=== PATIENT | female | born 1950 | race Two or more races ===

== ENCOUNTER 2018-07-07 17:06 | Emergency (ER) | payer MEDICAID ==
[~2018-07-07] VITALS: Ht 157.5 cm; Wt 74.8 kg
[2018-07-07 17:06] VITALS: BP 143/89
== END 2018-07-07 18:02 | disposition home or self-care (01) ==
LOC: ER 17:08
DX: B34.9 Viral infection, unspecified (principal); F41.9 Anxiety disorder, unspecified; I10 Essential (primary) hypertension; K21.9 Gastro-esophageal reflux disease without esophagitis; E11.9 Type 2 diabetes mellitus without complications; Z60.2 Problems related to living alone
CPT/HCPCS: 99283; A4606; Z7610

== ENCOUNTER 2018-07-22 13:10 | Emergency (ER) | payer MEDICAID ==
[~2018-07-22] VITALS: Ht 157.5 cm; Wt 68.0 kg
[2018-07-22] MEDS ORDERED: DIAZEPAM 5 MG TABLET ONE (14:04)
[2018-07-22] MEDS ORDERED: MORPHINE SULFATE INJ 4 MG/ML DISP.SYRIN ONE (14:04)
[2018-07-22] MEDS ORDERED: ONDANSETRON 4 MG TAB.RAPDIS ONE (14:08)
[2018-07-22] MEDS: MORPHINE SULFATE INJ 2 MG/ML DISP.SYRIN IM ONE (14:21)
[2018-07-22] MEDS: ONDANSETRON 4 MG TAB.RAPDIS PO ONE (14:21)
[2018-07-22] MEDS: DIAZEPAM 10 MG TABLET PO ONE (14:21)
--- NOTE | 2018-07-22 14:24 | NUR ---
LEFT SHOULDER PAIN RADIATING TO NECK AND BACK X 1 WEEK, WORST TODAY. PT AAOX3, VSS. DENIES CONRAD, CP, SOB, DIZZINESS, N/V @ THIS TIME. PT SEEN & EVAL'D BY TEENA BAEZA. MEDICATED FOR PAIN & WILL CONT TO MONITOR.
[2018-07-22 14:52] VITALS: BP 142/88
== END 2018-07-22 14:54 | disposition home or self-care (01) ==
LOC: ER 13:10
DX: M62.838 Other muscle spasm (principal); I10 Essential (primary) hypertension; E78.5 Hyperlipidemia, unspecified; K21.9 Gastro-esophageal reflux disease without esophagitis; Z60.2 Problems related to living alone
CPT/HCPCS: 73030; 96372; 99284; A4606; J2270; Q0162; Z7610

== ENCOUNTER 2018-12-05 21:57 | Emergency (ER) | payer MEDICAID ==
[~2018-12-05] VITALS: Ht 154.9 cm; Wt 73.0 kg
--- NOTE | 2018-12-06 | NUR ---
PT BIBS. COMP OF HAVING " I HAD EAR PAIN THAT SPREAD TO MY NECK THEN SPREAD TO MY LUNGS" -N/V -DIZZINESS 12/26 PAIN. ITCHING NOTED. STARTED THURSDAY.
[2018-12-06 00:06] VITALS: BP 151/71
== END 2018-12-06 00:15 | disposition home or self-care (01) ==
LOC: ER 22:01
DX: J06.9 Acute upper respiratory infection, unspecified (principal); I10 Essential (primary) hypertension; E78.5 Hyperlipidemia, unspecified; K21.9 Gastro-esophageal reflux disease without esophagitis; E11.9 Type 2 diabetes mellitus without complications; Z60.2 Problems related to living alone
CPT/HCPCS: 99283; A4606

== ENCOUNTER 2019-02-01 14:07 | Emergency (ER) | payer MEDICAID ==
[~2019-02-01] VITALS: Ht 154.9 cm; Wt 74.4 kg
[2019-02-01 14:33] VITALS: BP 122/66
== END 2019-02-01 15:02 | disposition home or self-care (01) ==
LOC: ER 14:07
DX: I88.9 Nonspecific lymphadenitis, unspecified (principal); E11.9 Type 2 diabetes mellitus without complications; I10 Essential (primary) hypertension; E78.5 Hyperlipidemia, unspecified; K21.9 Gastro-esophageal reflux disease without esophagitis; Z98.890 Other specified postprocedural states; Z90.710 Acquired absence of both cervix and uterus; Z60.2 Problems related to living alone

== ENCOUNTER 2019-06-27 17:43 | Emergency (ER) | payer MEDICAID ==
[~2019-06-27] VITALS: Ht 152.4 cm; Wt 72.6 kg
[2019-06-27 17:57] VITALS: BP 157/82
[2019-06-27] MEDS ORDERED: KETOROLAC TROMETHAMINE INJ 30 MG/ML VIAL IM ONE (18:30)
[2019-06-27] MEDS ORDERED: CARISOPRODOL 350 MG TABLET PO ONE (18:30)
[2019-06-27] MEDS ORDERED: DEXAMETHASONE SOD PHOSPHATE 4 MG/ML VIAL IM ONE (18:30)
[2019-06-27] MEDS ORDERED: DEXAMETHASONE SOD PHOSPHATE 4 MG/ML VIAL ONE (18:35)
[2019-06-27] MEDS ORDERED: CARISOPRODOL 350 MG TABLET ONE (18:35)
[2019-06-27] MEDS ORDERED: KETOROLAC TROMETHAMINE INJ 30 MG/ML VIAL ONE (18:35)
[2019-06-27] MEDS ORDERED: DEXAMETHASONE SOD PHOSPHATE 10 MG/ML VIAL ONE (18:42)
== END 2019-06-27 19:59 | disposition home or self-care (01) ==
LOC: ER 17:47
DX: M54.5 Low back pain (principal); M54.6 Pain in thoracic spine; I10 Essential (primary) hypertension; E78.5 Hyperlipidemia, unspecified; K21.9 Gastro-esophageal reflux disease without esophagitis; M79.7 Fibromyalgia; E11.9 Type 2 diabetes mellitus without complications; Z90.710 Acquired absence of both cervix and uterus; Z98.890 Other specified postprocedural states; Z60.2 Problems related to living alone
CPT/HCPCS: 96372 ×2; 99283; J1100; J1885

== ENCOUNTER 2019-11-09 16:13 | Emergency (ER) | payer MEDICAID ==
[~2019-11-09] VITALS: Ht 157.5 cm; Wt 70.3 kg
[2019-11-09 16:35] VITALS: BP 114/73
== END 2019-11-09 17:24 | disposition home or self-care (01) ==
LOC: ER 16:19
DX: M25.512 Pain in left shoulder (principal); I10 Essential (primary) hypertension; E78.5 Hyperlipidemia, unspecified; K21.9 Gastro-esophageal reflux disease without esophagitis; E11.9 Type 2 diabetes mellitus without complications; Z98.890 Other specified postprocedural states; Z90.710 Acquired absence of both cervix and uterus

== ENCOUNTER 2020-06-13 21:05 | Emergency (ER) | payer MEDICARE, MEDICAID ==
[~2020-06-13] VITALS: Ht 154.9 cm; Wt 63.5 kg
--- NOTE | 2020-06-13 21:20 | NUR ---
PATIENT CAME TO ER BED 2 C/O HEADACHE SINCE 6x MONTHS AGO. PATIENT STATES THAT SHE HAD A GROUND LEVEL FALL AND FELL FORWARD ON HER CHEST A WEEK AGO HITTING HER LEFT KNEE WELL. C/O LEFT KNEE PAIN. PATIENT IS AAOX4. NO SOB .BREATHING EVENLY AND UNLABORED ON ROOM AIR. CONNECTED TO THE MONITOR.
--- NOTE | 2020-06-13 21:29 | NUR ---
CIVIL DIVISION COMMANDER DEPUTY SHERIFF AT BEDSIDE.
[2020-06-13 21:38] LABS: BASOPHILS % (AUTO) 0.4 % (0.0-2.0); EOSINOPHILS % (AUTO) 2.3 % (0.0-6.0); HEMATOCRIT 39 % (33-45); HEMOGLOBIN 12.9 g/dL (11.5-14.8); LYMPHOCYTES # (AUTO) 2.4 /CMM (0.8-4.8); LYMPHOCYTES % (AUTO) 38.6 % (20.0-44.0); MEAN CORPUSCULAR HGB CONC 34 g/dl (31.0-36.0); MEAN CORPUSCULAR VOLUME 88 fL (82-100); MONOCYTES # (AUTO) 0.4 /CMM (0.1-1.30); MONOCYTES % (AUTO) 6.3 % (2.0-12.0); NEUTROPHILS # (AUTO) 3.2 /CMM (1.8-8.9); NEUTROPHILS % (AUTO) 52.4 % (43.0-81.0); PLATELET COUNT (AUTO) 248 /CMM (150-450); RED BLOOD CELL COUNT(AUTO) 4.36 MIL/uL (4.0-5.2); WHITE BLOOD COUNT (AUTO) 6.2 K/uL (4.3-11.0)
[2020-06-13 21:44] LABS: CALCIUM, SERUM 10.4 mg/dL (8.5-10.1); CREATININE 0.8 mg/dL (0.6-1.3); POTASSIUM 3.3 mmol/L (3.5-5.1)
--- NOTE | 2020-06-13 21:56 | NUR ---
RETURNED FROM CT BY SHEETMETAL PATTERNMAKER [facility]IA [facility]
[2020-06-13] MEDS ORDERED: KETOROLAC TROMETHAMINE INJ 30 MG/ML VIAL ONE (22:37)
[2020-06-13] MEDS ORDERED: ONDANSETRON 4 MG TAB.RAPDIS ONE (22:37)
--- NOTE | 2020-06-13 22:49 | NUR ---
Patient discharged to home in stable condition. Written and verbal after care instructions given. Patient verbalizes understanding of instruction.
[2020-06-13 22:52] VITALS: BP 128/76
[2020-06-13] MEDS ORDERED: ONDANSETRON 4 MG TAB.RAPDIS SL ONE (23:00)
[2020-06-13] MEDS ORDERED: KETOROLAC TROMETHAMINE INJ 60 MG/2 ML VIAL IM ONE (23:00)
== END 2020-06-13 22:53 | disposition home or self-care (01) ==
LOC: ER 21:08
DX: S93.491A Sprain of other ligament of right ankle, initial encounter (principal); S30.0XXA Contusion of lower back and pelvis, initial encounter; G44.209 Tension-type headache, unspecified, not intractable; I10 Essential (primary) hypertension; E78.5 Hyperlipidemia, unspecified; E11.9 Type 2 diabetes mellitus without complications; K21.9 Gastro-esophageal reflux disease without esophagitis; Z98.890 Other specified postprocedural states; W01.0XXA Fall on same level from slipping, tripping and stumbling without subsequent striking against object, initial encounter; Y93.89 Activity, other specified; Y92.89 Other specified places as the place of occurrence of the external cause; Y99.8 Other external cause status
CPT/HCPCS: 36415; 70450; 72100; 73630; 80048; 85025; 96372; 99285; J1885; Q0162

== ENCOUNTER 2021-07-14 00:02 | Emergency (ER) | payer MEDICARE, OTHER ==
[~2021-07-14] VITALS: Ht 157.5 cm; Wt 68.9 kg
--- NOTE | 2021-07-14 00:15 | NUR ---
BIBSELF C/O CHEST PAIN WITH COUGH. PATIENT HAD COUGH FOR PAST 2 WEEKS. PT A/OX4. TOLERATING R/A WITH NO SOB. ONLY TAKING RUBITUSSIN AT HOME. STATED THAT HER IS ALSO SICK WITH COUGH X2 WEEKS AGO.
--- NOTE | 2021-07-14 01:24 | NUR ---
PRODUCT DEVELOPMENT ENGINEER AT BEDSIDE
--- NOTE | 2021-07-14 01:40 | NUR ---
ALL LAB [facility]
[2021-07-14 02:30] LABS: WHITE BLOOD COUNT (AUTO) 5.1 K/uL (4.3-11.0)
[2021-07-14 02:31] LABS: BASOPHILS % (AUTO) 0.5 % (0.0-2.0); EOSINOPHILS % (AUTO) 2.1 % (0.0-6.0); HEMATOCRIT 38 % (33-45); HEMOGLOBIN 12.9 g/dL (11.5-14.8); LYMPHOCYTES % (AUTO) 41.3 % (20.0-44.0); MEAN CORPUSCULAR HGB CONC 34 g/dl (31.0-36.0); MEAN CORPUSCULAR VOLUME 86 fL (82-100); MONOCYTES % (AUTO) 6.6 % (2.0-12.0); NEUTROPHILS # (AUTO) 2.5 K/uL (1.8-8.9); NEUTROPHILS % (AUTO) 49.5 % (43.0-81.0); PLATELET COUNT (AUTO) 261 K/uL (150-450)
[2021-07-14 02:32] LABS: LYMPHOCYTES # (AUTO) 2.1 K/uL (0.8-4.8); MONOCYTES # (AUTO) 0.3 K/uL (0.1-1.30)
[2021-07-14 03:17] LABS: CHLORIDE 108 mmol/L (98-107); POTASSIUM 3.7 mmol/L (3.5-5.1); SODIUM SERUM 143 mmol/L (136-145)
[2021-07-14 03:18] LABS: CALCIUM, SERUM 8.7 mg/dL (8.5-10.1); CARBON DIOXIDE 27 mmol/L (21-32); CREATININE 0.7 mg/dL (0.6-1.3); GLUCOSE 191 mg/dL (74-106); UREA NITROGEN, BLOOD 20 mg/dL (7-18)
[2021-07-14] MEDS ORDERED: AZIT250T PO (03:22)
--- NOTE | 2021-07-14 03:38 | NUR ---
Patient discharged to home in stable condition. RX and Written and verbal after care instructions given. Patient verbalizes understanding of instruction.
[2021-07-14 03:40] VITALS: BP 144/71
== END 2021-07-14 03:41 | disposition home or self-care (01) ==
LOC: ER 00:05
DX: J40 Bronchitis, not specified as acute or chronic (principal); I10 Essential (primary) hypertension; E78.5 Hyperlipidemia, unspecified; K21.9 Gastro-esophageal reflux disease without esophagitis; E11.9 Type 2 diabetes mellitus without complications; Z98.890 Other specified postprocedural states
CPT/HCPCS: 36415; 71045-TC; 80048-TC; 84484-TC; 85025-TC

== ENCOUNTER 2021-08-14 17:14 | Emergency (ER) | payer MEDICARE, OTHER ==
[~2021-08-14] VITALS: Ht 157.5 cm; Wt 71.8 kg
[~2021-08-14 17:14] MED LIST: AZIT250T PO
[2021-08-14] MEDS ORDERED: KETOROLAC TROMETHAMINE INJ 30 MG/ML VIAL IM ONE (18:30)
[2021-08-14] MEDS ORDERED: NAPR500T6 PO ×2 (18:58→19:03)
[2021-08-14] MEDS ORDERED: KETOROLAC TROMETHAMINE INJ 30 MG/ML VIAL ONE (19:04)
--- NOTE | 2021-08-14 19:21 | NUR ---
C/O LEFT LEG PAIN RADIATING TO LEFT LOWER BACK 07/28. PT AMBULATED WITHOUT DIFFICULTY BREATHING EVEN AND UNLABORED. PATIENT ON MONITOR ALL VSS.
--- NOTE | 2021-08-14 19:29 | NUR ---
Patient discharged to home in stable condition. Written and verbal after care instructions given. Patient verbalizes understanding of instruction.
[2021-08-14 19:30] VITALS: BP 120/67
== END 2021-08-14 19:30 | disposition home or self-care (01) ==
LOC: ER 17:16
DX: M54.42 Lumbago with sciatica, left side (principal); I10 Essential (primary) hypertension; E78.5 Hyperlipidemia, unspecified; K21.9 Gastro-esophageal reflux disease without esophagitis; E11.9 Type 2 diabetes mellitus without complications; Z98.890 Other specified postprocedural states; Z90.710 Acquired absence of both cervix and uterus; Z79.899 Other long term (current) drug therapy
CPT/HCPCS: 73503; 96372; 99283; A6403; J1885; 73502

== ENCOUNTER 2022-06-08 09:30 | Emergency (ER) | payer MEDICARE, OTHER ==
[~2022-06-08] VITALS: Ht 154.9 cm; Wt 71.2 kg
[~2022-06-08 09:30] MED LIST changes: +NAPR500T6 PO
[2022-06-08 09:36] VITALS: BP 148/89
--- NOTE | 2022-06-08 09:36 | NUR ---
bibs c/o throat pain, L ear pain and headache x 2 weeks
[2022-06-08] MEDS ORDERED: IBUPROFEN 600 MG TABLET PO ONE (10:00)
[2022-06-08] MEDS ORDERED: IBUPROFEN 600 MG TABLET ONE (10:04)
[2022-06-08] MEDS ORDERED: AMOX500T2 PO (12:34)
[2022-06-08] MEDS ORDERED: IBUP-1955 PO (12:34)
--- NOTE | 2022-06-08 12:44 | NUR ---
Patient discharged to home in stable condition. Written and verbal after care instructions given. Patient verbalizes understanding of instruction.
== END 2022-06-08 12:45 | disposition home or self-care (01) ==
LOC: ER 09:36
DX: J02.9 Acute pharyngitis, unspecified (principal); I88.9 Nonspecific lymphadenitis, unspecified; M25.511 Pain in right shoulder; E11.9 Type 2 diabetes mellitus without complications; I10 Essential (primary) hypertension; E78.5 Hyperlipidemia, unspecified; K21.9 Gastro-esophageal reflux disease without esophagitis; Z98.890 Other specified postprocedural states; Z79.899 Other long term (current) drug therapy
CPT/HCPCS: 73030-TC; 86403-TC; 87070-TC

== ENCOUNTER 2023-01-21 13:45 | Emergency (ER) | payer MEDICARE, OTHER ==
[~2023-01-21] VITALS: Ht 157.5 cm; Wt 68.0 kg
[~2023-01-21 13:45] MED LIST changes: +ALBU8.5H8 INH; +AMOX500T2 PO; +BENZ-13 PO; +IBUP-1955 PO
[2023-01-21] MEDS ORDERED: IBUPROFEN 600 MG TABLET PO ONE (14:30)
--- NOTE | 2023-01-21 14:40 | NUR ---
PAtient AOx4 able to express her concrns. Patient stable, states she is in some pain due to fall. Discussed plan of care with patient, verbalized agreement.
[2023-01-21] MEDS ORDERED: IBUPROFEN 600 MG TABLET ONE (14:51)
--- NOTE | 2023-01-21 17:50 | NUR ---
Patient stable, at bedside.
[2023-01-21 18:26] VITALS: BP 130/80
== END 2023-01-21 18:27 | disposition home or self-care (01) ==
LOC: ER 13:58
DX: M25.571 Pain in right ankle and joints of right foot (principal); I10 Essential (primary) hypertension; E78.5 Hyperlipidemia, unspecified; K21.9 Gastro-esophageal reflux disease without esophagitis; E11.9 Type 2 diabetes mellitus without complications; Z90.710 Acquired absence of both cervix and uterus; Z79.899 Other long term (current) drug therapy
CPT/HCPCS: 73610-TC; 73630-TC

== ENCOUNTER 2023-10-07 15:06 | Emergency (ER) | payer MEDICARE, OTHER ==
[~2023-10-07] VITALS: Ht 154.9 cm; Wt 68.9 kg
[2023-10-07] MEDS ORDERED: BENZ-13 PO (16:08)
[2023-10-07] MEDS ORDERED: IBUP-1955 PO (16:08)
[2023-10-07] MEDS ORDERED: DEXT15DR6 EACHEYE (16:08)
[2023-10-07] MEDS ORDERED: dexaMETHasone SOD PHOSPHATE 1 ML ONE (16:13)
[2023-10-07] MEDS ORDERED: KETOROLAC TROMETHAMINE 15 MG/ML VIAL ONE (16:13)
[2023-10-07] MEDS: dexaMETHasone SOD PHOSPHATE 10 MG/ML VIAL IM ONE (16:30)
[2023-10-07] MEDS: KETOROLAC TROMETHAMINE 15 MG/ML VIAL IM ONE (16:30)
[2023-10-07 17:00] VITALS: BP 125/77; TEMP 98; O2SAT 99
== END 2023-10-07 17:30 | disposition home or self-care (01) ==
LOC: ER 15:11
DX: J06.9 Acute upper respiratory infection, unspecified (principal); H92.03 Otalgia, bilateral; J02.9 Acute pharyngitis, unspecified; H04.123 Dry eye syndrome of bilateral lacrimal glands; R05.9 Cough, unspecified; R09.81 Nasal congestion; I10 Essential (primary) hypertension; E78.5 Hyperlipidemia, unspecified; E11.9 Type 2 diabetes mellitus without complications; K21.9 Gastro-esophageal reflux disease without esophagitis; Z90.710 Acquired absence of both cervix and uterus; Z20.822 Contact with and (suspected) exposure to COVID-19
CPT/HCPCS: 99284; 87426; 96372 ×2; 87804 ×2; 87420; J1100; J1885; C9803

== ENCOUNTER 2024-03-16 10:50 | Emergency (ER) | payer MEDICARE, OTHER ==
[~2024-03-16] VITALS: Ht 154.9 cm; Wt 67.1 kg
[~2024-03-16 10:50] MED LIST changes: +DEXT15DR6 EACHEYE
[2024-03-16] MEDS ORDERED: KETOROLAC TROMETHAMINE 15 MG/ML VIAL ONE (11:30)
[2024-03-16] MEDS: KETOROLAC TROMETHAMINE 15 MG/ML VIAL IM ONE (11:32)
[2024-03-16] MEDS ORDERED: NAPR500T6 PO (14:16)
[2024-03-16 14:29] VITALS: BP 140/60; TEMP 98.2; O2SAT 99
== END 2024-03-16 14:30 | disposition home or self-care (01) ==
LOC: ER 11:14
DX: M72.2 Plantar fascial fibromatosis (principal); M79.671 Pain in right foot; I10 Essential (primary) hypertension; E11.9 Type 2 diabetes mellitus without complications; E78.5 Hyperlipidemia, unspecified; K21.9 Gastro-esophageal reflux disease without esophagitis; M19.90 Unspecified osteoarthritis, unspecified site; Z90.710 Acquired absence of both cervix and uterus
CPT/HCPCS: 99285; 93971; 96372; 73630; J1885

== ENCOUNTER 2024-04-10 11:24 | Emergency (ER) | payer MEDICARE, OTHER ==
[~2024-04-10] VITALS: Ht 152.4 cm; Wt 67.6 kg
[2024-04-10 11:31] VITALS: BP 151/86; TEMP 98.5
[2024-04-10] MEDS ORDERED: KETOROLAC TROMETHAMINE INJ 30 MG/ML VIAL ONE (11:42)
[2024-04-10] MEDS: KETOROLAC TROMETHAMINE INJ 60 MG/2 ML VIAL IM ONE (11:46)
[2024-04-10] MEDS ORDERED: IBUP-1955 PO (11:49)
[2024-04-10 12:16] VITALS: O2SAT 98
== END 2024-04-10 12:23 | disposition home or self-care (01) ==
LOC: ER 11:31
DX: M72.2 Plantar fascial fibromatosis (principal); M79.671 Pain in right foot; I10 Essential (primary) hypertension; E78.5 Hyperlipidemia, unspecified; K21.9 Gastro-esophageal reflux disease without esophagitis; E11.9 Type 2 diabetes mellitus without complications; M19.90 Unspecified osteoarthritis, unspecified site; Z90.710 Acquired absence of both cervix and uterus
CPT/HCPCS: 99283; 96372; J1885

== ENCOUNTER 2024-04-11 10:27 | Emergency (ER) | payer MEDICARE, OTHER ==
[~2024-04-11] VITALS: Ht 154.9 cm; Wt 67.6 kg
[2024-04-11 11:03] VITALS: BP 141/77; TEMP 99.7; O2SAT 100
== END 2024-04-11 11:03 | disposition home or self-care (01) ==
LOC: ER 10:32
DX: U07.1 COVID-19 (principal); J06.9 Acute upper respiratory infection, unspecified; I10 Essential (primary) hypertension; E78.5 Hyperlipidemia, unspecified; K21.9 Gastro-esophageal reflux disease without esophagitis; Z98.890 Other specified postprocedural states; Z79.899 Other long term (current) drug therapy